=== PATIENT | male | born 2005 | race Caucasian/White ===

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

== ENCOUNTER 2025-02-17 14:23 | Emergency (ER) | payer BC, SELFPAY ==
--- NOTE | 2025-02-17 14:28 | ED.WOUNDLAC ---
HPI - Wound/Laceration General Chief Complaint: Wound/Laceration Stated Complaint: Laceration to Right Index Finger Time Seen by Provider: 02/17/25 14:27 Source: patient Mode of arrival: ambulatory Limitations: no limitations History of Present Illness HPI narrative: Gianni is a 19-year-old male patient presenting to the clinic today with complaints of a cut to his right index finger that occurred last night around 9:00 p.m. when he was opening up [facility]. He reports he cleaned it and applied a bandage. Wanted to have it looked at today. His tetanus shot is up-to-date. Bleeding is controlled. Related Data Home Medications ?Medication ?Instructions ?Recorded ?Confirmed ?Last Taken ?Type No Home Medications 01/20/22 06/26/22 Unknown History Allergies Allergy/AdvReac Type Severity Reaction Status Date / Time No Known Allergies Allergy Verified 02/17/25 14:29 Review of Systems Review of Systems: Pertinent positives per HPI. Patient denies any fever, chills, rash, headache, visual changes, dizziness, cough, runny nose, sore throat, shortness of breath, chest pain, palpitations, nausea, vomiting, diarrhea, constipation, abdominal pain, or any urinary issues. PMFSH Comments At the time of my signature, I reviewed and agree with the nursing past medical, surgical, social, and family history. There is no relevant family history pertinent to the patient complaint. Exam Narrative: General: Well-developed, well nourished, in no apparent distress Head: Normocephalic, atraumatic. Cardio: Regular rate and rhythm, s1 and s2 normal, no murmur appreciated. Resp: Clear to auscultation bilaterally, no rhonchi, rales, wheezing or rubs. Integumentary: [place], warm, and dry, 0.25cm superficial laceration to the base of the volar aspect right index finger, bleeding is controlled, no redness, swelling, or drainage. Course Course Level of Care: Express Care Visit Vital Signs Vital signs: Vital Signs Temperature 36.9 C 02/17/25 14:30 Pulse Rate 81 02/17/25 14:30 Respiratory Rate 18 02/17/25 14:30 Blood Pressure 152/59 H 02/17/25 14:30 Pulse Oximetry 100 02/17/25 14:30 Oxygen Delivery Room Air 02/17/25 14:30 Temperature 36.9 C 02/17/25 14:30 Pulse Rate 81 02/17/25 14:30 Respiratory Rate 18 02/17/25 14:30 Blood Pressure 152/59 H 02/17/25 14:30 Pulse Oximetry 100 02/17/25 14:30 Oxygen Delivery Room Air 02/17/25 14:30 MDM MDM Narrative Medical decision making narrative: At the time of visit patient is resting comfortably on the exam table. Patient appears to be nontoxic. Complaints of a cut to his right index finger that occurred last night around 9:00 p.m. when he was opening up [employer] presents. He reports he cleaned it and applied a bandage. Wanted to have it looked at today. His tetanus shot is up-to-date. Bleeding is controlled. On exam patient has a 0.25cm superficial laceration to the base of the volar aspect right index finger, bleeding is controlled, no redness, swelling, or drainage. Plan: Patient has a superficial laceration. This occurred around 9:00 p.m. last night and is over 12 hours old. Wound was cleansed and redressed. No wound repair is needed at this time. Supportive measures were discussed with the patient and they voiced understanding discharge instructions and agrees to treatment plan. Return precautions reviewed Differential Diagnosis Differential Diagnosis: Differential diagnostic considerations for upper respiratory infection include upper respiratory infection, croup, otitis media, sinusitis, viral infection, bronchitis, influenza, pharyngitis, strep, uvulitis. Discharge Plan Discharge Clinical Impression: Superficial laceration of finger Patient Disposition: Home Condition: Stable Instructions: Antibiotic Form, Finger Laceration (ED) Additional Instructions: Leave bandage on for 24 hours then may remove and apply band aide covering as needed. Keep wound clean and dry Wash wound at least daily with soap and water and pat dry Watch for signs and symptoms of infection- redness, streaking, swelling, purulent discharge, or increase in pain. Follow up with your PCP as needed Patient Language: Nepali Prescriptions: No Action No Home Medications Follow-up/Referrals: Hans Morales MD [Primary Care Provider, Pediatrics] Time of Disposition: 14:42 Quality NIHSS Nursing Documentation ED NIHSS nursing documentation: reviewed/agree
[2025-02-17 14:30] VITALS: BP 152/59; PULSE 81; RESP 18; TEMP 36.9; O2SAT 100
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
== END 2025-02-17 14:40 | disposition home or self-care (01) ==
PROVIDERS: Emergency Provider Nurse Practitioner Family; PCP Pediatrics
DX: S61.210A Laceration without foreign body of right index finger without damage to nail, initial encounter (principal); W45.8XXA Other foreign body or object entering through skin, initial encounter
CPT/HCPCS: 99212; G0463